=== PATIENT | male | born 1965 | race Caucasian/White ===

== ENCOUNTER 2017-04-07 15:27 | Emergency (ER) | payer OTHER ==
[~2017-04-07] VITALS: Ht 180.3 cm; Wt 115.2 kg
[~2017-04-07 15:27] MED LIST: ALBUTEROL0.09 MG/A1 INH; AMPHETAMINE SAL20 MG PO; CHLORPHENIRAMINE4 MG PO; CLARITIN10 MG PO; PREDNISONE 20MG20 MG PO; TESSALON PERLE100 MG PO
--- NOTE | 2017-04-07 18:34 | ED DYSPNEA/ASTHMA COMPLAINT ---
History of Present Illness General Chief Complaint: Upper Respiratory Sx/Fever Stated Complaint: UPPER RESP SYMPTOMS Source: patient, family Exam Limitations: no limitations Vital Signs & Intake/Output Vital Signs & Intake/Output Vital Signs Date Time Temp Pulse Resp B/P B/P Pulse O2 O2 Flow FiO2 Mean Ox Delivery Rate 04/07 1905 98 04/07 1833 97.5 96 20 135/78 95 Room Air 04/07 1804 Room Air 04/07 1532 97.4 105 20 128/86 98 Room Air Allergies Coded Allergies: MDX - Penicillin (PENICILLIN) (UNKNOWN 12/28/13) Uncoded Allergies: PET DANDER (12/28/13) SEASONAL ALLERGIES (12/28/13) Reconcile Medications Albuterol Sulfate (Albuterol Sulfate Hfa) 90 MCG HFA.AER.AD 2-4 PUFF INH Q4-6 PRN PRN SHORTNESS OF BREATH 90 MCG PER PUFF Albuterol Sulfate (Proventil Hfa) 90 MCG HFA.AER.AD 2 PUF INH Q4 PRN dyspnea Amphetamine Salt Combination (Amphetamine Salt Combo) 20 MG TAB 1 TAB PO TID PRN ADD (Reported) Azithromycin (Zithromax) 250 MG TABLET 1 DP PO AD bronchitis 2 the first day followed by 1 for days 2-5 Benzonatate (Tessalon Perle) 100 MG CAPSULE 1 CAP PO TID PRN COUGH Chlorpheniramine Maleate (Chlorpheniramine) 4 MG TAB 1-2 TAB PO Q4P PRN CONGESTIN Guaifenesin/Dm/Pseudoephedrine (Robafen Cf Syrup) 100 MG-10 MG-30 MG/5 ML SYRUP 5 ML PO BIDP PRN cough Loratadine (Claritin) 10 MG TAB 1 TAB PO DAILY ALLERGY Prednisone 20 MG TABLET 1 TAB PO BID BRONCHOSPASM Prednisone 10 MG TABLET 6 TAB PO DAILY bronchitis 6 tabs day 1 and 2 5 tabs day 3 4 tabs day 4 3 tabs day 5 2 tabs day 6 Triage Note: PT TO ED C/O URI S/S SINCE 03/30. C/O "COUGHING FITS". HAS BEEN TAKING AN OLD RX OF PREDNISONE. C/O FEELING SOB. RA SATS 98%. NO OBVIOUS RESP DISTRESS NOTED. AFEBRILE. Triage Nurses Notes Reviewed? yes Onset: Gradual Duration: day(s): Timing: recent history Severity: moderate Prior Episodes/Possible Cause: occasional episodes HPI: 51yo male presents to ED complaining of dyspnea and dry cough x 8 days. Patient reports cough is hacking cough, persistent, intermittently productive of green sputum. He has had similar symptoms in the past, he states he gets these symptoms approximately every 6 months. Patient initially had a fever however this has resolved. Patient states that 8 days ago he began prednisone 25 mg (a leftover prescription) 3 days which helped his symptoms. Patient is worried about lung cancer as well, as his mother had lung cancer and his family were exposed to chemicals in the rolled home. Patient denies abdominal pain, chest pain, diarrhea, nausea, vomiting. (Cesilia Smith) Past History Travel History Traveled to [place] past 21 day No Medical History Any Pertinent Medical History? none Surgical History Surgical History: non-contributory Psychosocial History Who do you live with Spouse Services at Home None What is your primary language Khmer Tobacco Use: Never used ETOH Use: denies use Illicit Drug Use: denies illicit drug use Family History Hx Contributory? No (Cesilia Smith) Review of Systems Review of Systems Constitutional: Reports: no symptoms. EENTM: Reports: no symptoms. Respiratory: Reports: see HPI. Cardiovascular: Reports: no symptoms. GI: Reports: no symptoms. Genitourinary: Reports: no symptoms. Musculoskeletal: Reports: no symptoms. Skin: Reports: no symptoms. Neurological/Psychological: Reports: no symptoms. Hematologic/Endocrine: Reports: no symptoms. Immunologic/Allergic: Reports: no symptoms. All Other Systems: Reviewed and Negative (Cesilia Smith) Physical Exam Physical Exam General Appearance: well developed/nourished, no apparent distress, alert, awake Head: atraumatic, normal appearance Eyes: Bilateral: normal appearance. Ears, Nose, Throat: hearing grossly normal Neck: normal inspection, supple, full range of motion Respiratory: chest non-tender, no respiratory distress, end expiratory wheezes bilaterally with dry hacking cough upon deep inspiration Cardiovascular: regular rate/rhythm Gastrointestinal: normal bowel sounds, soft, non-tender, no organomegaly Extremities: normal inspection, normal range of motion Neurologic/Psych: awake, alert, oriented x 3 Skin: intact, normal color, warm/dry Core Measures ACS in differential dx? No CVA/TIA Diagnosis No Sepsis Present: No Sepsis Focused Exam Completed? No (Stephani NATH,Cesilia Macias) Progress Differential Diagnosis: asthma, bronchitis, costochondritis, COPD, pericarditis, pneumonia, pneumothorax Plan of Care: Orders Procedure Date/time Status COMPREHENSIVE METABOLIC PANEL 04/07 1832 Complete CBC WITHOUT DIFFERENTIAL 04/07 1832 Complete Laboratory Tests 04/07/17 1905: Anion Gap 9, Estimated GFR > 60, BUN/Creatinine Ratio 27.1 H, Glucose 116 H, Calcium 8.8, Total Bilirubin 0.7, AST 61 H, ALT 109 H, Alkaline Phosphatase 75 , Total Protein 6.4, Albumin 3.6, Globulin 2.8, Albumin/Globulin Ratio 1.3, CBC w Diff NO MAN DIFF REQ, RBC 5.07, MCV 90.0, MCH 31.0, RDW 13.7, MPV 7.8, Gran % 68.6, Lymphocytes % 21.1, Monocytes % 8.0, Eosinophils % 1.9, Basophils % 0.4, Absolute Granulocytes 8.3 H, Absolute Lymphocytes 2.6, Absolute Monocytes 1.0 H, Absolute Eosinophils 0.2, Absolute Basophils 0, PUBS MCHC 34.5 Chest x-ray without signs of pneumonia. Patient with mild end expiratory wheezing, slightly improved following DuoNeb. Patient medicated with IV Solu- Medrol. He likely has bronchitis, will treat with prednisone and azithromycin. Patient also given albuterol inhaler for his dyspnea. Ambulatory O2 saturation 94% without significant dyspnea. Patient to follow-up with desktop engineer. He is nontoxic appearing, no acute distress, vital signs are stable. Patient agrees with the plan of care. The patient was discussed with Dr. Rowland who agrees with this plan. Diagnostic Imaging: Viewed by Me: Radiology Read. Discussed w/RAD: Radiology Read. CXR Impression: PATIENT: JOSE DE JESUS GROVE PRESENT AGE: 51 PATIENT ACCOUNT NO: [id number] : 66 LOCATION: [facility] ORDERING PHYSICIAN: Cesilia NATH SERVICE DATE: 04/07/17-1832 EXAM TYPE: RAD - XRY-CHEST XRAY, TWO VIEWS EXAMINATION: CHEST 2 VIEWS CLINICAL INFORMATION: Cough. Fever. COMPARISON: 12/28/2013. TECHNIQUE: PA and lateral views of the chest were obtained. FINDINGS: The cardiac silhouette is not enlarged. The mediastinal and hilar contours are unremarkable. There are neither pleural effusions nor pneumothoraces. There are no consolidations. The osseous structures are unremarkable. IMPRESSION: No evidence for acute disease. DICTATED BY: Pantera Mcgrath MD DATE/TIME DICTATED:04/07/171931 WEAPONS MECHANIC:NASH DATE/TIME TRANSCRIBED:04/07/171931 CONFIDENTIAL, DO NOT COPY WITHOUT APPROPRIATE AUTHORIZATION. <Electronically signed in Other Vendor System> SIGNED BY: Pantera Mcgrath MD 04/07/171936 Initial ED EKG: none (Stephani NATH,Cesilia Macias) Departure Departure Disposition: HOME OR SELF CARE Condition: Stable Clinical Impression Primary Impression: Bronchitis Secondary Impressions: Cough Dyspnea Qualifiers: Dyspnea type: unspecified Qualified Code: R06.00 - Dyspnea, unspecified Referrals: Omar Gillette MD (PCP/Family) Additional Instructions: Take full steroid pack. Also take full course of antibiotics. Use albuterol inhaler for shortness of breath as needed. Use cough syrup as needed for cough. Follow up with her primary care doctor. Also follow-up with desktop engineer for further evaluation. Return to emergency Department with any worsening symptoms or concerns. Please note that there might be incidental findings in your evaluation that are unrelated to the current emergency department visit. Please notify your primary care doctor about this emergency department visit in order to obtain and review all of the testing performed so that these incidental findings can be monitored as needed. If you had an x-ray performed, please understand that some fractures may not be seen on the initial set of x-rays. If your symptoms persist you might need a repeat set of x-rays to check for such a fracture. If you had a laceration evaluated, please understand that foreign bodies such as glass or wood may not be visible to the naked eye or on plain x-rays. If the wound becomes red, swollen, increasingly more painful or if there is any drainage from the wound, please have it reevaluated by a physician for the possibility of a retained foreign body. If you're unable to follow up as outlined in the discharge instructions please return to the emergency department. Thank you for choosing the [facility] Emergency Department for your care. It was a pleasure to serve you today. Departure Forms: Customer Survey General Discharge Information Prescriptions: Current Visit Scripts Albuterol Sulfate (Proventil Hfa) 2 PUF INH Q4 PRN dyspnea #1 INHAL Azithromycin (Zithromax) 1 DP PO AD #6 TAB 2 the first day followed by 1 for days 2-5 Prednisone 6 TAB PO DAILY #26 TAB 6 tabs day 1 and 2 5 tabs day 3 4 tabs day 4 3 tabs day 5 2 tabs day 6 Guaifenesin/Dm/Pseudoephedrine (Robafen Cf Syrup) 5 ML PO BIDP PRN cough #120 ML (Stephani NATH,Cesilia Macias) PA/GEOLOGY PROFESSOR Co-Sign Statement Statement: ED Attending supervision documentation- [] I saw and evaluated the patient. I have also reviewed all the pertinent lab results and diagnostic results. I agree with the findings and the plan of care as documented in the PA's/GEOLOGY PROFESSOR's documentation. [X] I have reviewed the ED Record and agree with the PA's/GEOLOGY PROFESSOR's documentation. [] Additions or exceptions (if any) to the PAs/GEOLOGY PROFESSOR's note and plan are summarized below: [] (Kashif SWARTZ,Edith) Critical Care Note Critical Care Note Critical Care Time: non-applicable (Cesilia Smith)
[2017-04-07 19:24] LABS: ABSOLUTE BASOPHIL COUNT 0 /CUMM (0.0-0.2); ABSOLUTE EOSINOPHIL COUNT 0.2 /CUMM (0.0-0.7); ABSOLUTE GRANULOCYTE CT 8.3 /CUMM (1.4-6.5); ABSOLUTE LYMPH COUNT 2.6 /CUMM (1.2-3.4); BASOPHIL % 0.4 % (0.0-2.0); EOSINOPHIL % 1.9 % (0-5); GRANULOCYTE % 68.6 % (42.2-75.2); HEMATOCRIT 45.7 % (42-52); MEAN CORPUSCULAR HGB CONC 34.5 G/DL (33.0-37.0); MEAN PLATELET VOLUME 7.8 FL (7.4-10.4); PLATELET COUNT 309 /CUMM (130-400); RBC DISTRIBUTION WIDTH 13.7 % (11.5-14.5); RED BLOOD CELL CT 5.07 /CUMM (4.70-6.10); WHITE BLOOD CELL COUNT 12.1 /CUMM (4.8-10.8)
--- NOTE | 2017-04-07 19:37 | RADIOLOGY REPORT ---
EXAMINATION: CHEST 2 VIEWS CLINICAL INFORMATION: Cough. Fever. COMPARISON: 12/28/2013. TECHNIQUE: PA and lateral views of the chest were obtained. FINDINGS: The cardiac silhouette is not enlarged. The mediastinal and hilar contours are unremarkable. There are neither pleural effusions nor pneumothoraces. There are no consolidations. The osseous structures are unremarkable. IMPRESSION: No evidence for acute disease.
[2017-04-07] MEDS ORDERED: PROVENTIL HFA6.7 GM INH (20:39)
[2017-04-07] MEDS ORDERED: PREDNISONE10 M2 PO (20:39)
[2017-04-07] MEDS ORDERED: [UNRECOGNIZED DRUG - OTHER] PO (20:39)
[2017-04-07] MEDS ORDERED: ZITHROMAX250 M2 PO (20:39)
[2017-04-07 20:53] VITALS: BP 141/69
== END 2017-04-07 20:54 ==
LOC: ERH 15:27
PROVIDERS: Physician Assistant
DX: J40 Bronchitis, not specified as acute or chronic (principal)
CPT/HCPCS: 1263; 71046; 96374; J2930

== ENCOUNTER 2017-06-10 22:36 | Emergency (ER) | payer OTHER ==
[~2017-06-10 22:36] MED LIST changes: +PREDNISONE10 M2 PO; +PROVENTIL HFA6.7 GM INH; +ZITHROMAX250 M2 PO; +[UNRECOGNIZED DRUG - OTHER] PO
--- NOTE | 2017-06-10 22:56 | ED MVC/FALL/TRAUMA COMPLAINT ---
History of Present Illness General Chief Complaint: Fall Stated Complaint: FALL Source: patient, family, EMS Exam Limitations: no limitations Vital Signs & Intake/Output Vital Signs & Intake/Output Vital Signs Date Time Temp Pulse Resp B/P B/P Pulse O2 O2 Flow FiO2 Mean Ox Delivery Rate 06/10 2250 101 20 112/51 100 Room Air Allergies Coded Allergies: MDX - Penicillin (PENICILLIN) (UNKNOWN 12/28/13) Uncoded Allergies: PET DANDER (12/28/13) SEASONAL ALLERGIES (12/28/13) Triage Note: PT BIBA SLIP AND FELL ON BACK IN SNOW - RT SIDE LOWER BACK 5/10 PAIN WHEN SITTING STILL - 9/10 PAIN WHEN MOVBING - COMFORT ONLY WHEN ON STOMACHE NUMBNESS ON SOME RT SIDE Triage Nurses Notes Reviewed? yes Onset: Abrupt Duration: minute(s): (FEW) Timing: single episode today Severity: severe Severity Numbers: 10 Injuries/Fall Location: back Method of Injury: fall Loss of Consciousness: no loss of consciousness Modifying Factors: Worsens With: movement. HPI: 51 year old male presents via EMS from home for chief complaint of severe acute lower onset of back pain after slipping on stairs and falling down about 4 cement stairs were cleansed back. No head trauma. He was going outside to shovel slow when he slipped. He was unable to stand and walk and EMS was called on his behalf. Patient reports that pain is 10 out of 10, significantly worse with movement. (Kashif SWARTZ,[facility]) Reconcile Medications Albuterol Sulfate (Albuterol Sulfate Hfa) 90 MCG HFA.AER.AD 2-4 PUFF INH Q4-6 PRN PRN SHORTNESS OF BREATH 90 MCG PER PUFF Albuterol Sulfate (Proventil Hfa) 90 MCG HFA.AER.AD 2 PUF INH Q4 PRN dyspnea Amphetamine Salt Combination (Amphetamine Salt Combo) 20 MG TAB 1 TAB PO TID PRN ADD (Reported) Azithromycin (Zithromax) 250 MG TABLET 1 DP PO AD bronchitis 2 the first day followed by 1 for days 2-5 Benzonatate (Tessalon Perle) 100 MG CAPSULE 1 CAP PO TID PRN COUGH Chlorpheniramine Maleate (Chlorpheniramine) 4 MG TAB 1-2 TAB PO Q4P PRN CONGESTIN Cyclobenzaprine HCl 10 MG TABLET 1 TAB PO 4 TIMES/DAY PRN MUSCLE SPASM Guaifenesin/Dm/Pseudoephedrine (Robafen Cf Syrup) 100 MG-10 MG-30 MG/5 ML SYRUP 5 ML PO BIDP PRN cough Ibuprofen 800 MG TABLET 1 TAB PO TID PRN pain Loratadine (Claritin) 10 MG TAB 1 TAB PO DAILY ALLERGY Oxycodone HCl/Acetaminophen (Percocet 5-325 MG Tablet) 5 MG-325 MG TABLET 1 TAB PO 4XDP PRN PAIN TEN...[id number] Prednisone 20 MG TABLET 1 TAB PO BID BRONCHOSPASM Prednisone 10 MG TABLET 6 TAB PO DAILY bronchitis 6 tabs day 1 and 2 5 tabs day 3 4 tabs day 4 3 tabs day 5 2 tabs day 6 (Flako SWARTZ,[facility] Youngblood) Past History Travel History Traveled to [place] past 21 day No Medical History Any Pertinent Medical History? see below for history Neurological: adhd Surgical History Surgical History: non-contributory Psychosocial History Who do you live with Spouse Services at Home None What is your primary language Kazakh Family History Hx Contributory? No (Edith Rowland MD) Review of Systems Review of Systems Constitutional: Denies: chills, fever. Eyes: Reports: no symptoms. Ears, Nose, Throat, Mouth: Reports: no symptoms. Respiratory: Reports: no symptoms. Cardiovascular: Reports: no symptoms. Gastrointestinal/Abdominal: Reports: no symptoms. Genitourinary: Reports: no symptoms. Musculoskeletal: Reports: back pain, muscle pain, muscle stiffness, neck pain. Skin: Reports: no symptoms. Neurological/Psychological: Reports: no symptoms. All Other Systems: Reviewed and Negative (Edith Rowland MD) Physical Exam Physical Exam General Appearance: well developed/nourished, alert, awake, anxious, moderate distress, severe distress Head: atraumatic, normal appearance Eyes: Bilateral: normal appearance, PERRL, EOMI. Ears, Nose, Throat, Mouth: hearing grossly normal, moist mucous membrane Neck: normal inspection, supple, full range of motion Respiratory: normal breath sounds, chest non-tender, no respiratory distress Cardiovascular: regular rate/rhythm, normal peripheral pulses Gastrointestinal: normal bowel sounds, soft Back: normal inspection, normal range of motion, PARASPINAL MUSCLE TENDERNESS, NO LACERATION Extremities: normal range of motion Neurologic/Psych: no motor/sensory deficits, awake, alert, oriented x 3 Skin: intact, normal color, warm/dry Core Measures ACS in differential dx? No CVA/TIA Diagnosis No Sepsis Present: No Sepsis Focused Exam Completed? No (Kashif SWARTZ,Edith) Progress Differential Diagnosis: FRACTURE, CONTUSION, BLEED Plan of Care: Orders Procedure Date/time Status Durable Medical Equipment 06/11 0054 Active Current Medications Sig/Shamir Start time Last Medication Dose Stop Time Status Admin Diazepam 5 MG ONCE ONE 06/10 2299 CAN (Valium) 06/10 2300 Diagnostic Imaging: Viewed by Me: CT Scan. Discussed w/RAD: CT Scan. Hand-Off Endorsed To: Flako SWARTZ,[facility] Youngblood Endorsed Time: 2299 Pending: CT (Kashif SWARTZ,Edith) Radiology Impression: PATIENT: JOSE DE JESUS GROVE PRESENT AGE: 51 PATIENT ACCOUNT NO: [id number] : 66 LOCATION: [facility] ORDERING PHYSICIAN: Edith Rowland MD SERVICE DATE: 06/10/17 EXAM TYPE: CAT - CT LUMB SPINE WO IV CONTRAST EXAMINATION: CT LUMBAR SPINE WITHOUT CONTRAST CLINICAL INFORMATION: Fall down stairs COMPARISON: None TECHNIQUE: Helical non-contrast CT images were obtained through the lumbar spine and 1.25 and 2.5 mm axial reconstructions were reviewed along with sagittal and coronal MPRs. DLP: 1201.63 mGy-cm FINDINGS: There is anatomic alignment of the lumbar vertebral bodies and posterior elements. Vertebral body heights are maintained. There is an essentially nondisplaced right L1 transverse process fracture. There is degenerative disc disease with vacuum disc phenomena at L1-L2 and associated endplate osteophyte formation. Schmorl's nodes are present at L2-L3 with mild vacuum disc phenomenon. There are mild endplate osteophytes at L3-L4 and trace osteophytes at L4-L5. There is moderate disc space narrowing and endplate irregularity at L5-S1. There is mild to moderate facet arthropathy in the lower lumbar spine. There is suggestion of mild central stenosis at L1-L2 and L3-L4, suboptimally assessed on CT. The sacroiliac joints are intact. IMPRESSION: 1. Nondisplaced right L1 transverse process fracture. 2. Mild to moderate degenerative changes as described above. DICTATED BY: Silverio Garnica MD DATE/ TIME DICTATED:06/10/172356 REMOTE COMPUTER TERMINAL OPERATOR:NASH DATE/TIME TRANSCRIBED: 06/10/17 / 3246 CONFIDENTIAL, DO NOT COPY WITHOUT APPROPRIATE AUTHORIZATION. < Electronically signed in Other Vendor System> SIGNED BY: Silverio Garnica MD 06/11/17 0008 (Flako SWARTZ,[facility]son Youngblood) Departure Departure Disposition: STILL A PATIENT Condition: Stable Clinical Impression Primary Impression: Acute low back pain Secondary Impressions: Fall down stairs Referrals: Nain SWARTZ,Omar García (PCP/Family) Departure Forms: Customer Survey General Discharge Information (Kashif SWARTZ,Edith) Departure Prescriptions: Current Visit Scripts Ibuprofen 1 TAB PO TID PRN pain #60 TAB Cyclobenzaprine HCl 1 TAB PO 4 TIMES/DAY PRN MUSCLE SPASM #30 TAB Ref 1 Oxycodone HCl/Acetaminophen (Percocet 5-325 MG Tablet) 1 TAB PO 4XDP PRN PAIN #10 TAB TEN...[id number] Comments 06/11/17, 1:33am.... pt feeling more comfortable after supportive medications. To my exam, no focal neurologic findings. pt with diffuse right sided lumbar tenderness and muscle spasm. no focal bony tenderness. Pt home with crutches and referred to neurosurgery and ortho for close follow up. (Flako SWARTZ,Gilson Youngblood)
--- NOTE | 2017-06-11 00:08 | CT SCAN REPORT ---
EXAMINATION: CT LUMBAR SPINE WITHOUT CONTRAST CLINICAL INFORMATION: Fall down stairs COMPARISON: None TECHNIQUE: Helical non-contrast CT images were obtained through the lumbar spine and 1.25 and 2.5 mm axial reconstructions were reviewed along with sagittal and coronal MPRs. DLP: 1201.63 mGy-cm FINDINGS: There is anatomic alignment of the lumbar vertebral bodies and posterior elements. Vertebral body heights are maintained. There is an essentially nondisplaced right L1 transverse process fracture. There is degenerative disc disease with vacuum disc phenomena at L1-L2 and associated endplate osteophyte formation. Schmorl's nodes are present at L2-L3 with mild vacuum disc phenomenon. There are mild endplate osteophytes at L3-L4 and trace osteophytes at L4-L5. There is moderate disc space narrowing and endplate irregularity at L5-S1. There is mild to moderate facet arthropathy in the lower lumbar spine. There is suggestion of mild central stenosis at L1-L2 and L3-L4, suboptimally assessed on CT. The sacroiliac joints are intact. IMPRESSION: 1. Nondisplaced right L1 transverse process fracture. 2. Mild to moderate degenerative changes as described above.
[2017-06-11] MEDS ORDERED: PERCOCET 5-3251 EACH PO (01:00)
[2017-06-11] MEDS ORDERED: CYCLOBENZAPRINE10 M1 PO (01:00)
[2017-06-11] MEDS ORDERED: IBUPROFEN800 M1 PO (01:00)
[2017-06-11 01:40] VITALS: BP 104/68
== END 2017-06-11 01:58 ==
LOC: ERH 22:36
DX: M54.5 Low back pain (principal)
CPT/HCPCS: 96374; 96375; 96376; J1885; J3360